=== PATIENT | male | born 1950 | race Caucasian/White ===

== ENCOUNTER → 2017-03-23 | Outpatient (CLI) | payer MEDICARE | END | disposition home or self-care (01) | LOC: CFH 14:08 | PROVIDERS: ATTEND Family Medicine | DX: Z13.820 Encounter for screening for osteoporosis (principal); M81.0 Age-related osteoporosis without current pathological fracture; M79.609 Pain in unspecified limb; Z87.81 Personal history of (healed) traumatic fracture | CPT/HCPCS: 77080 ==

== ENCOUNTER → 2017-10-28 | Outpatient (CLI) | payer MEDICARE ==
[2017-10-28 16:36] LABS: BASOPHILS # (AUTO) 0.04 x10^3/uL (0-0.1); BASOPHILS % (AUTO) 1 % (0-1); EOSINOPHILS # (AUTO) 0.34 x10^3/uL (0-0.4); EOSINOPHILS % (AUTO) 5 % (1-7); LYMPHOCYTES # (AUTO) 1.71 x10^3/uL (1-3.4); LYMPHOCYTES % (AUTO) 24 % (22-44); MD NO; MEAN CORPUSCULAR HEMOGLOBIN 29.3 pg (27.5-34.5); MEAN CORPUSCULAR HGB CONC 33.4 g/dL (33.2-36.2); MEAN PLATELET VOLUME 7.5 fL (7.4-10.4); MONOCYTES # (AUTO) 0.46 x10^3/uL (0.2-0.8); MONOCYTES % (AUTO) 6 % (2-9); NEUTROPHILS % (AUTO) 65 % (42-75); PLATELET COUNT 236 x10^3/uL (130-400); RED CELL DISTRIBUTION WIDTH 13.3 % (9.4-14.8)
[2017-10-28 16:47] LABS: ALANINE AMINOTRANSFERASE 34 U/L (12-78); ALBUMIN 3.7 g/dL (3.4-5.0); ANION GAP 9 mmol/L (5-15); CALCIUM 7.9 mg/dL (8.5-10.1); CHLORIDE 109 mmol/L (98-107); CHOLESTEROL, TOTAL 134 mg/dL (140-239); CREATININE 0.94 mg/dL (0.7-1.3); TRIGLYCERIDES 157 mg/dL (50-200); VLDL CHOLESTEROL 31 mg/dL (0-25)
[2017-10-28 16:57] LABS: ALKALINE PHOSPHATASE 58 U/L (45-117); BILIRUBIN,TOTAL 0.6 mg/dL (0.2-1.0); CHOL/HDL RATIO 2.9; HDL CHOL % 35 % (26-37); HDL CHOLESTEROL (DIRECT) 47 mg/dL (40-60); LDL CHOLESTEROL,CALCULATED 56 mg/dL (54-169); LDL/HDL RATIO 1.2 (0.5-3.0); TOTAL PROTEIN 6.6 g/dL (6.4-8.2)
[2017-10-28 17:10] LABS: HEMOGLOBIN A1C 5.9 % (4.2-6.3)
== END | disposition home or self-care (01) ==
LOC: LAB 16:11
PROVIDERS: ATTEND Family Medicine
DX: Z13.220 Encounter for screening for lipoid disorders (principal); Z13.0 Encounter for screening for diseases of the blood and blood-forming organs and certain disorders involving the immune mechanism; Z13.1 Encounter for screening for diabetes mellitus; E55.9 Vitamin D deficiency, unspecified; D64.9 Anemia, unspecified; E78.5 Hyperlipidemia, unspecified; E78.1 Pure hyperglyceridemia; R79.89 Other specified abnormal findings of blood chemistry; M81.0 Age-related osteoporosis without current pathological fracture
CPT/HCPCS: 36415; 80053; 80061; 82306; 83036; 84443; 85025

== ENCOUNTER → 2018-05-08 | Outpatient (CLI) | payer MEDICARE ==
[2018-05-08 13:54] LABS: HEMOGLOBIN A1C 5.6 % (4.2-6.3)
== END | disposition home or self-care (01) ==
LOC: LAB 13:15
PROVIDERS: ATTEND Family Medicine
DX: R53.83 Other fatigue (principal); R73.03 Prediabetes
CPT/HCPCS: 36415; 82306; 83036; 84443

== ENCOUNTER → 2018-08-28 | Outpatient (CLI) | payer MEDICARE ==
[2018-08-28 14:51] LABS: MEAN CORPUSCULAR HEMOGLOBIN 28.3 pg (27.5-34.5); MEAN CORPUSCULAR HGB CONC 32.8 g/dL (33.2-36.2); MEAN CORPUSCULAR VOLUME 86.4 fL (81-97); MEAN PLATELET VOLUME 7.6 fL (7.4-10.4); PLATELET COUNT 223 x10^3/uL (130-400); RED CELL DISTRIBUTION WIDTH 15.5 % (9.4-14.8)
[2018-08-28 15:32] LABS: FREE T4 (FREE THYROXINE) 0.92 ng/dL (0.76-1.46); THYROID STIMULATING HORMONE 4.87 mIU/L (0.358-3.740)
== END | disposition home or self-care (01) ==
LOC: LAB 14:32
PROVIDERS: ATTEND Family Medicine
DX: E83.51 Hypocalcemia (principal); D51.9 Vitamin B12 deficiency anemia, unspecified; D64.9 Anemia, unspecified; R79.89 Other specified abnormal findings of blood chemistry
CPT/HCPCS: 36415; 82306; 82330; 82607; 83540; 83550; 84439; 84443; 85027

== ENCOUNTER 2018-10-13 05:51 | Emergency (ER) | payer MEDICARE ==
[~2018-10-13] VITALS: Ht 172.7 cm; Wt 68.0 kg
[2018-10-13 09:59] VITALS: BP 118/74
== END 2018-10-13 10:01 | disposition home or self-care (01) ==
LOC: ED 08:49
DX: R31.0 Gross hematuria (principal); R93.5 Abnormal findings on diagnostic imaging of other abdominal regions, including retroperitoneum
CPT/HCPCS: 36415; 74177; 80053; 81003; 85025; 99284; Q9967

== ENCOUNTER → 2019-04-24 | Outpatient (CLI) | payer MEDICARE ==
[~2019-04-24] MED LIST: OMNIPAQUE 350 MG/ML, 150 ML BOTTLE ONE
== END | disposition home or self-care (01) ==
LOC: CFH 12:45
PROVIDERS: ATTEND Physician Assistant
DX: K57.30 Diverticulosis of large intestine without perforation or abscess without bleeding (principal); K42.9 Umbilical hernia without obstruction or gangrene; K82.0 Obstruction of gallbladder; M43.17 Spondylolisthesis, lumbosacral region; R31.0 Gross hematuria
CPT/HCPCS: 74178; 82565; Q9967